=== PATIENT | male | born 1965 | race Caucasian/White ===

== ENCOUNTER 2020-02-10 16:09 | Inpatient (IN) | payer BC, OTHER ==
[~2020-02-10] VITALS: Ht 175.3 cm; Wt 73.0 kg
[2020-02-10 16:10] VITALS: BP 191/101
[2020-02-10 16:36] LABS: ABSOLUTE NEUTROPHILS 7.2 thou/uL (1.4-8.2); BASOPHILS 0.4 % (0.0-2.0); HEMATOCRIT 41.1 % (42.0-52.0); HEMOGLOBIN 14.6 gm/dL (14.0-18.0); LYMPHOCYTES 3.9 % (24.0-44.0); MCH 34.6 pg (26.0-34.0); MCHC 35.4 g/dL (28.0-37.0); MCV 97.7 fL (80.0-100.0); MONOCYTES 10.3 % (1.0-8.0); PLATELET COUNT 241 thou/uL (150-400); POLYS 85.4 % (36.0-66.0); RBC 4.21 mil/uL (4.50-6.00); WBC 8.5 thou/uL (4.0-11.0)
[2020-02-10 16:46] LABS: ANION GAP 21 mmol/L (7-16); BUN 13 mg/dL (7-18); CALCIUM 9.4 mg/dL (8.5-10.1); CHLORIDE 85 mmol/L (98-107); CO2 21 mmol/L (21-32); CREATININE 1.9 mg/dL (0.7-1.3); GLUCOSE 240 mg/dL (74-106); POTASSIUM 3.4 mmol/L (3.5-5.1); SODIUM 127 mmol/L (136-145)
[2020-02-10 16:56] LABS: ALBUMIN 4.2 g/dL (3.4-5.0); LIPASE 460 U/L (73-393); SGOT 64 U/L (15-37); SGPT 89 U/L (30-65); TOTAL BILIRUBIN 1.7 mg/dL (<0.1-1.0); TOTAL PROTEIN 8.8 g/dL (6.4-8.2); TROPONIN-I <0.06 ng/mL (<0.06)
--- NOTE | 2020-02-10 17:15 | NUR ---
SS: [id number] ADDRESS: [address] [place] [address], [facility] [id number] PHONE: [phone] EMPLOYER: [employer] 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
[2020-02-10 17:27] LABS: URINE BLOOD 2+ (Negative); URINE CLARITY SL CLOUDY; URINE GLUCOSE-RANDOM* TRACE (Negative); URINE KETONES 2+ (Negative); URINE LEUKOCYTES-REFLEX NEGATIVE (Negative); URINE NITRITE-REFLEX NEGATIVE (Negative); URINE PROTEIN (DIPSTICK) 1+ (Negative); URINE SPECIFIC GRAVITY >= 1.030 (1.005-1.035)
[2020-02-10 17:28] LABS: ICTOTEST (BILI CONFIRMATORY) Negative (Negative); URINE BILIRUBIN NEGATIVE (Negative); URINE COLOR DARK YELLOW
[2020-02-10 17:47] LABS: AMORPHOUS URATES Few /LPF (None Seen); BACTERIA-REFLEX 1-9 Few /HPF (None Seen); HYALINE CASTS 4-10 Moderate /LPF (None Seen); SQUAMOUS 0-3 Few /LPF (0-3); URINE RBC 3-10 Few /HPF (0-2); URINE WBC-REFLEX 0-5 Rare /HPF (0-5)
[2020-02-10 17:51] LABS: SALICYLATE < 2.8 mg/dL (2.8-20.0)
[2020-02-10 18:03] LABS: AMP/METHAMP Negative (Negative); BARBITURATES Negative (Negative); BENZODIAZEPINES Negative (Negative); COCAINE Negative (Negative); METHADONE Negative (Negative); OPIATES Negative (Negative); PCP Negative (Negative)
[2020-02-10 19:08] VITALS: BP 181/91
[2020-02-10 19:30] VITALS: BP 180/93
--- NOTE | 2020-02-11 00:39 | NUR ---
ADMISSION NOTE: NO HOME MEDICATION, NO PREFERRED PHARMACY. DENIES THAT HE HAS A PRIMARY PHYSICIAN. HE LIVES WITH HIS MOTHER, HE STATES THAT HE OWNS THE HOUSE. HE CANNOT REMEMBER WHERE HIS CELL PHONE IS AT [employer]. HE HAS ASKED REPEATEDILY FOR ME TO LOOK AROUND THE HOSPITAL. HE CANNOT REMEMBER ANY PHONE NUMBERS. I DID PUT HIS MOTHER AND FATHERS PHONE NUMBERS AT HIS BEDSIDE AND SHOWED HIM HOW TO USE THE PHONE. GAVE HIM A LORAZEPAM, PO AT TIME OF ADMISSION FOR AGITATION. HE STATED THAT HE DOES DRINK REGULARLY AND THAT HIS LAST DRINK WAS 4 DAYS AGO. HE SAYS THAT HE DRINKS RUM AND BEER. HIS CLOTHING WERE SOILED WITH FECES. CHANGED HIM OUT OF CLOTHING AND WIPED HIME DOWN AT TIME OF ADMISSION. HE HAS HAD NORMAL BOWEL MOVMENTS AT HOME ACCORDING TO PATIENT, THAT ARE FORMED AND BROWN. HE HAD TOILET TISSUE STUCK INTO HIS RECTUM THAT HAD TO BE REMOVED. HE HAD DRIED FECES ALL OVER HIS BOTTOM AND CLOTHING. NO SKIN BREAKDOWN, NO REDNESS. DENIES PAIN, DENIES HALLUCINATIONS, OR SKIN CRAWLING OR HEARING VOICES. HE DOES ADMIT TO DEPRESSION. HE DOES ADMIT THAT HE HAS A PROBLEM WITH THE AMOUNT OF ALCOHOL THAT HE CONSUMES. HE IS CURRENTLY LAYING IN BED RESTING, WITH TELEVISION ON.
[2020-02-11 01:56] VITALS: BP 155/91
[2020-02-11 07:15] LABS: HEMATOCRIT 30.5 % (42.0-52.0); MCH 34.4 pg (26.0-34.0); MCHC 34.5 g/dL (28.0-37.0); RBC 3.05 mil/uL (4.50-6.00); RDW 13.4 % (10.5-14.5); WBC 5.3 thou/uL (4.0-11.0)
[2020-02-11 07:36] LABS: HEMOGLOBIN 10.5 gm/dL (14.0-18.0)
[2020-02-11 08:00] VITALS: BP 146/76
--- NOTE | 2020-02-11 08:01 | EKG ---
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
--- NOTE | 2020-02-11 08:29 | NUR ---
CALLED DR GIRALDO TO REPORT HGB 10.5 NO NEW ORDERS MAY GIVE HEPARIN. PT HAS MILD ANXIETY GIVEN PO PRN ATIVAN. TOOK AM MEDS IS EATING BREAKFAST SPOKE TO GIRLFRIEND AND IS CALM. VS TAKEN IN CHART. BLOOD SUGAR TAKEN. IV FLUIDS INFUSING ORDERED.
[2020-02-11 08:54] LABS: ALBUMIN 2.9 g/dL (3.4-5.0); CALCIUM 7.6 mg/dL (8.5-10.1); CREATININE 1.3 mg/dL (0.7-1.3); POTASSIUM 3.3 mmol/L (3.5-5.1); TOTAL BILIRUBIN 0.9 mg/dL (<0.1-1.0); TOTAL PROTEIN 6.2 g/dL (6.4-8.2)
[2020-02-11 09:20] VITALS: BP 132/75
[2020-02-11 10:20] VITALS: BP 140/75
--- NOTE | 2020-02-11 10:52 | NUR ---
DR SMALLWOOD CONSULTED AND IS HERE ON UNIT TO SEE PATIENT. DR GIRALDO ON UNIT NOTIFIED OF FALL NO NEW ORDERS OTHER THAN CONSULT FOR DR. SMALLWOOD
--- NOTE | 2020-02-11 10:57 | NUR ---
AT 0920 RN AT NURSES STATION HEARD BED ALARM GOING OFF OPENED DOOR AND OBSERVED PATIENT WOBBLY TRYING TO GET ON BEDSIDE COMMODE. PATIENT SAT ON FLOOR NO INJURIES. CARTON FORMING MACHINE ADJUSTER DOCTOR AND ORAL SURGERY ASSISTANT NOTIFIED. VS TAKEN FALL PROTOCOL ALSO PROTOCOL
--- NOTE | 2020-02-11 13:45 | NUR ---
INITIAL ASSESSMENT: Received consult. MARIO reviewed chart and spoke with nursing and attending physician. Pt was admitted from home due to dehydration/ABDON. Pt is in Enhanced Isolation to r/o COVID-19. Per report, pt was living in a "hoarding" environment. Pt was covered with feces when he was brought in by [facility]. Psych consult ordered to evaluate pt. Pt with hx of ETOH use. MARIO spoke with pt via phone. Introduced role of SW. Pt states he lives at home with his mother, Wong. Prior to admission, pt was not using any DME for ambulation. Pt states he has a PCP, but does not know the PCP's name. 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 MARIO updated UR RN. MARIO attempted to reach pt's mother at phone number that pt provided ([phone]). This number is no longer in service. Awaiting psych consult, COVID-19 and c.diff results. MARIO is following to assist as needed with discharge planning.
[2020-02-11 17:08] VITALS: BP 158/87
--- NOTE | 2020-02-11 17:11 | NUR ---
PATIENT RESTING IN BED IS SLEEPING.EASILY AROUSED BLOOD SUGAR AND V.S TAKEN AT THIS TIME. PT W/O PAIN OR RESP DISTRESS. PATIENT'S BOSS AT [employer] CALLED TO CHECK ON PATIENT. HIS CELL = [phone] AND HOME PHONE IS [phone]. HIS NAME SANDI PATEL HE ALSO STATES PATIENT HAS BLUE CROSS BLUE SHIELD INSURANCE. INFO TO BE PASSED ON TO UNIT TANK WAGON DRIVER TWAN NURSE RN STATES SHE WILL PASS ON THIS NURSE IS GOING TO LEAVE FOR DAY.
[2020-02-11 19:32] VITALS: BP 147/85
[2020-02-12] VITALS (9 sets, daily range): BP systolic 128–193; BP diastolic 55–95
--- NOTE | 2020-02-12 00:40 | NUR ---
ASSUMED CARE OF PT @ MIDNIGHT. REPORT RECIEVED FROM OTHER RN. PT AOX2/3 GETS UP WITHOUT CALLING FALL PREC IN PLACE. CIWA SCORE MONITORED AND ATIVAN GIVEN FOR MANAGEMENT. UP WITH SBA TO BSC AND URINAL BY BEDSIDE. ISOLATION MAITAINED. IV INTACT AND FLUIDS INFUISING. WILL CONT TO MONITOR TILL EOS.
[2020-02-12 08:57] LABS: HEMATOCRIT 32.3 % (42.0-52.0); HEMOGLOBIN 11.1 gm/dL (14.0-18.0); MCH 34.6 pg (26.0-34.0); MCHC 34.5 g/dL (28.0-37.0); MCV 100.1 fL (80.0-100.0); RBC 3.22 mil/uL (4.50-6.00); RDW 13.1 % (10.5-14.5); WBC 4.3 thou/uL (4.0-11.0)
[2020-02-12 09:11] LABS: CALCIUM 7.9 mg/dL (8.5-10.1); CREATININE 0.8 mg/dL (0.7-1.3); POTASSIUM 3.1 mmol/L (3.5-5.1)
--- NOTE | 2020-02-12 12:49 | NUR ---
Received awake on bed. Due medications given as prescribed, able to swallow meds w/o difficulty. On room air. A+Ox2, confused, impulsive at times; pt was restless this morning, wanting to go home and saying he is currently in a hotel room and needs to get something from his other room, re-oriented. On regular diet- tolerating well; no nausea, no vomiting and no abdominal pain noted. On blood sugar monitoring- taken and recorded accordingly. Continent of bowel and bladder- able to use bedside commode and urinal. With NS at 125cc/hr, infusing well at L AC, dressing C/D/I. Falls bundle in place, bed alarm on- pt gets up without calling and have history of falling recently. Maintained on isolation, covid results negative; Cdiff negative but having loose stools. Pt re-oriented frequently. Asked Dr Sawyer if pt needs Covid reswab- to verify with ID nurse Chau or Dr Rosario- Dr Rosario in the steve this PM, update given- asked re: reswab- he called Dr Sawyer re: POC, ok to reswab patient- a/w physician's orders. To continue monitoring patient. Assisted in ADLs.
--- NOTE | 2020-02-12 13:09 | NUR ---
MARIO notified that pt's boss, Андрей Brooke, called yesterday to check on pt. SW spoke with pt via phone. SW asked if Андрей can be contacted to provide him with any update. Pt gave consent for SW to contact Андрей. SW asked pt to state who he lives with. Pt reports that he lives with his mother and provided SW with listed contact number for his mother: [phone]. This number is no longer in service. SW spoke with Андрей via phone. Introduced role of MARIO. Андрей has known pt for about 5 years. Pt's mother prior to pt working for Андрей. Per Андрей, pt was adopted. Pt has 3 step sisters. They have been estranged for years. Андрей states he is unaware of pt having any mental health issues in the past. Андрей reports that he has tried to encourage pt to see a physician on a regular basis. Unsure when pt has last been evaluated by a physician. Pt is normally independent with ADLs and alert/orientated x 4. 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 Their last day of work was December 23. Since that time, Андрей has checked on pt regularly. Андрей states pt does have a hx of daily ETOH use and states that pt states when he is alone at home, he will drink. Pt's job was his source of social interaction. Pt does have health insurance through his employer. The health insurance plan will term at the end of February. Андрей states that he is unsure if pt has applied for unemployment and if he is receiving any income at this time. Pt's friend, Hallie, has called to check on pt. Hallie lives on the [facility]. Андрей states that he is willing to be a designated contact for pt. MARIO discussed needs at time of discharge: possible post-acute placement. Psych is following. Pt remains in Enhanced Isolation. Will need therapy to evaluate pt. No weekend discharge planned. Provided SW contact info to Андрей. SW is following to assist as needed with discharge planning.
--- NOTE | 2020-02-12 21:26 | NUR ---
REVIEWED PT INFORMATION WITH INFECTION CONTROL. OK TO DC ISOLATION. PT TO MOVE TO 2N.
--- NOTE | 2020-02-12 21:41 | NUR ---
PATIENT IS ALERT AND ORIENTED X1-2. COOPERATIVE WITH CARE. UP TO BSC TO VOID WITH SMALL LOOSE STOOL WITH ONE ASSIST. PATIENT RECEIVED COVID NEGATIVE STATUS AND IS TO BE MOVED TO ROOM 203 ON CCU TONIGHT. POTASSIUM 3.1 AND RECEIVED 40MEQ PO AT 1738. WILL HAVE CBC AND BMP DRAWN IN THE AM. PATIENT HAD A CT OF HIS HEAD TODAY. FALL TOOK PLACE ON 02/11/2020, BED ALARM ON. PATIENT IS C-DIFF NEGATIVE PER AM NURSE AND HE HAS HAD APPROX FIVE SMALL STOOLS DURING THE DAY. HISTORY OF ALCOHOL ABUSE. THIS NURSE MEDICATED WITH LORAZEPAM 2MG FOR AGITATION AT CHANGE OF SHIFT. WILL MONITOR.
--- NOTE | 2020-02-12 23:50 | NUR ---
TRANSFER FROM 3W. PT AOX3 NOT TIME. PT LETHARGIC, HAD ATIVAN PRIOR TO TRANSFER. COMPLIANT CALM GOOD EYE CONTACT ANSWERS QUESTIONS, BLUNTED AFFECT. BED ALARM ON. PT DID GET UP WITH OUT CALLING FOR ASSISTANCE TO USE URINAL. IVF INTACT.
[2020-02-13] VITALS (9 sets, daily range): BP systolic 130–188; BP diastolic 73–100
[2020-02-13 04:45] LABS: HEMATOCRIT 33.2 % (42.0-52.0); HEMOGLOBIN 11.2 gm/dL (14.0-18.0); MCH 34.2 pg (26.0-34.0); MCHC 33.7 g/dL (28.0-37.0); MCV 101.4 fL (80.0-100.0); RBC 3.27 mil/uL (4.50-6.00); WBC 3.6 thou/uL (4.0-11.0)
[2020-02-13 04:55] LABS: CREATININE 0.8 mg/dL (0.7-1.3); POTASSIUM 3.2 mmol/L (3.5-5.1)
--- NOTE | 2020-02-13 05:06 | NUR ---
RESTLESS IN AM CRAWLING IN AND OUT OF BED, SLIGHT TREMORS, ELVEATED BP DIAPHORESIS. LINENS CHANGED. PRN IV ATIVAN PER ANDREINA 9.
--- NOTE | 2020-02-13 06:19 | NUR ---
BP REMAINS 180/100 MANUAL AFTER ATIVAN FOR CIWA. PT SITTING IN BED WATCHING TV EATING POTATOE CHIPS. PROVIDER CALLED. IV FLUIDS DCD ONE TIME HYDRALAZINE ORDERED.
--- NOTE | 2020-02-13 16:27 | NUR ---
PT CARE ASSUMED AT 0700. ASSESSMENTS CHARTED. MEDICATIONS CHARTED. PT CIWA AT 8. PT OFTEN SITS CROSSLEGGED AT THE HEAD OF THE BED. BED ALARM ON. PT IS UNSTEADY ON HIS FEET, ABLE TO WALK TO TOILET FOR BM WITH SBA. UTILIZES URINAL. CONFUSED / DISORIENTED, WANTS TO PHONE HIS PARENTS ().
[2020-02-14 03:37] VITALS: BP 171/89
[2020-02-14 07:18] VITALS: BP 162/88
--- NOTE | 2020-02-14 17:39 | NUR ---
Assumed patient care at 0715. Vital signs have been stable. Lung sounds clear to auscultation; diminished. Patient had a normal bowel movement today. He has been consuming 100% of all meals. Patient has been anxious, paranoid and agitated during this shift. He has also been impulsive and inappropriate. Patient has gotten angry because he cant have any alcohol here; he has tried to bargain with this nurse, stating "I will take this medication after you give me a beer." He has been in and out of the restroom several times and was noted to appear to be masturbating in there, as he asked to HOUSEHOLD ASSISTANT to "stay the night with him tonight", asked her "out" several times and was focused on her for most of this afternoon. Patient has been trying to go into other patient's rooms and has threatened to leave several times. Security came to assist/persuade patient to take his medication x's 1. Patient finally took Lorazepam 1mg po at 1525 after much persuation. This medication was not noted to decrease patient's agitation and/or anxiety. Dr Sawyer notified. Received new order for Haloperidol 2.5mL per IV push. Haldol given at 1620 with effectiveness noted after approximately 15 minutes. Will continue to monitor and report to on-coming shift.
[2020-02-14 20:50] VITALS: BP 161/95
--- NOTE | 2020-02-15 05:37 | NUR ---
Assumed pt care at 1900. Pt is A/OX to self and place only, questioning when he'll be discharged home pt explained to pt the POC and pt verbalized understanding. Pt's impulsive and gets up frequently w/o calling for help;fall safety reinforced. Pt incontinent/continent of urine this shift. Up to BR with SBA/gait unsteady and weak. Denies pain on assessment. CIWA score 1. Denies anxiety/paranoia. No requests for alcohol made this shift. Fall precautions in place, will continue to monitor pt.
[2020-02-15 07:15] VITALS: BP 179/97
--- NOTE | 2020-02-15 15:32 | NUR ---
ASSUMED CARE AT 0700. PT ALERT, CONFUSED WITH POOR MEMORY. VSSA/RA. NO COMPLAINTS AT THIS TIME. PT IMPULSIVE AND WON'T STAY IN BED AND CALL FOR HELP. REINFORCED AND EDUCATED PT THE IMPORTANCE OF SAFETY AND TO USE THE CALL LIGHT. BED ALARM ON, CALL LIGHT IN REACH. PT CALLED RN TO LOOK AT HIS PIV, APPEARS RED AND SWOLLEN AT INSERTION SITE. NOTHING INFUSING. UNSURE WHEN HAPPENED. LOOKS LIKE IT WAS POSSIBLY BEING PICKED AT BY PT. TOOK PIV OUT WITHOUT ANY COMPLICATIONS. TOLERATING DIET. WILL CONTINUE TO MONITOR
[2020-02-15 15:40] VITALS: BP 149/82
--- NOTE | 2020-02-15 17:27 | NUR ---
SW received call from pt's boss, Андрей Brooke. SW returned call and left voice message with SW contact info. Pt moved to 4W from 3W over the weekend. SW is following to assist as needed with discharge planning.
[2020-02-15 19:20] VITALS: BP 148/87
[2020-02-15 19:36] LABS: TSH 2.954 uIU/mL (0.358-3.740)
--- NOTE | 2020-02-16 05:10 | NUR ---
Assumed pt care at 1900. A/Ox2,confused, impulsive and paranoid at times. Pt needs frequent reminders not to turn off the bed alarm off and call for help before getting OOB but non-compliant. Medicated per EMAR with some relief. Denies pain on assessment. Up with cane/SBA. PIV reinserted on RFA w/2 attempts. Pt supposed to have MRI today,questionare filled with pt and faxed. Fall safety reinforced, bed alarm on and call light within reach. Resting with no distress noted. Will continue to monitor pt.
[2020-02-16 08:01] VITALS: BP 147/88
[2020-02-16 14:21] LABS: ALBUMIN 3.4 g/dL (3.4-5.0); DIRECT BILIRUBIN < 0.1 mg/dL (<0.1-0.2); SGOT 40 U/L (15-37); SGPT 63 U/L (30-65); TOTAL BILIRUBIN 0.6 mg/dL (<0.1-1.0); TOTAL PROTEIN 6.9 g/dL (6.4-8.2)
--- NOTE | 2020-02-16 16:23 | NUR ---
CM ATTEMPTED PT TO PT IN HIS ROOM TO DISCUSS POSSIBLE POST ACUTE CARE STAY WITH NO ANSWER. CM TO CONTINUE TO REATTEMPT. CM TO FOLLOW INDICATED WITH DC PLANNING.
[2020-02-16 16:26] VITALS: BP 173/91
--- NOTE | 2020-02-16 20:35 | NUR ---
Assumed patient care at 0715. Vital signs stable, LSCTA (diminished); BS x's 4, abdomen soft and non-tender, skin is clean, warm, dry and intact. Patient denies pain. Affect is flat. He continues with paranoid statements, is alert and oriented x's 1-2. Patient has been re-directed from attempting to go into other patients rooms and has attempted to leave via the elevator. Report given to on-coming nurse.
[2020-02-16 20:43] VITALS: BP 154/82
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
[2020-02-17 05:26] LABS: HEMATOCRIT 31.3 % (42.0-52.0); HEMOGLOBIN 10.8 gm/dL (14.0-18.0); MCH 34.8 pg (26.0-34.0); MCHC 34.5 g/dL (28.0-37.0); MCV 100.9 fL (80.0-100.0); RBC 3.1 mil/uL (4.50-6.00); RDW 13.6 % (10.5-14.5); WBC 3.4 thou/uL (4.0-11.0)
[2020-02-17 05:29] LABS: CALCIUM 9.1 mg/dL (8.5-10.1); CREATININE 1.1 mg/dL (0.7-1.3); POTASSIUM 3.2 mmol/L (3.5-5.1)
[2020-02-17 08:24] VITALS: BP 146/89
--- NOTE | 2020-02-17 13:50 | NUR ---
Assess due to length of stay. Admit with alcoholic encephalopathy, acute renal failure. Pt confused, impulsive, flight risk. Followed by psych. Also has pending workup for ? liver mass. Unsure of wt hx. Eating 100% of all meals and on vitamin, thiamine and B12 supplementation. CM working on post acute care placement. Low nutrition risk with appropriate nutrition interventions in place.
[2020-02-17 14:08] LABS: GLOBULIN TOTAL 3.3 g/dL (2.2-3.9); M-SPIKE Not Observed g/dL (Not Observed)
[2020-02-17 14:41] VITALS: BP 138/84
--- NOTE | 2020-02-17 15:09 | NUR ---
CARE TEAM INDICATING THATPT NEED SKILLED POST ACUTE CARE STAY UPON DC. CM CALLED AND SPOKE WITH PT HE EXPRESSED UNDERSTANDING. CM INDICATED THAT CM WOULD PROVIDE LIST OF IN NETWORK FACILITIES FOR HIM TO REVIEW. LIST WAS PROVIDED. CM CALLED AND LEFT VM FOR PT'S FRIEND IN [place] AND FOR PT'S BOSS SANDI. CM ASKED THAT FACESHEET BE SENT TO [facility] FOR ASSISTANCE WITH POSSIBLE MEDICAID/DISABILITY APPLICAITON. CM ASKED PT ABOUT DPOA EXPLAINED WHAT IT WAS AND ASKED WHO HE WOULD WANT IF HER WERE TO DO ONE HE INDICATED LIKELY MARY. CM TO SEND REFERRALS FACILITIES CLOSEST TO PT'S [id number] ZIP CODE FOR REVIEW FOR POSSIBLE ADMISSION.
--- NOTE | 2020-02-17 15:11 | NUR ---
FAXED FACE SHEET TO CHRISTINA AT [facility] TO HELP WITH MEDICAID APPLICATION FOR SECONDARY INSURANCE RECEIVED CONFIRMATION.
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
[2020-02-17 19:15] VITALS: BP 127/66
--- NOTE | 2020-02-18 05:07 | NUR ---
Pt. rested quietly during the night when checked on during frequent rounds. He c/o back pain and was given po pain pill (see emar) with some relief noted. Bed alarm is on.
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
[2020-02-18 08:05] VITALS: BP 166/86
[2020-02-18 12:34] LABS: CHOLESTEROL 174 mg/dL (<200); HDL CHOLESTEROL 69 mg/dL (>40); LDL CHOLESTEROL 88 mg/dL (<100); TC:HDL 2.5 Ratio (Not establshd); TRIGLYCERIDE 87 mg/dL (<150); VLDL 17 mg/dL (<40)
--- NOTE | 2020-02-18 13:55 | NUR ---
FAXED REFERRAL TO [facility] SHE RECEIVED REFERRAL AND CAN ACCEPT CLINICALLY PT PREFERS [facility] FIRST CHOICE. FAXED REFERRAL TO [facility] RECEIVED CONFIRMATION AND LEFT MSG WITH DEANNA IN ADM AT [facility]. DP TO FOLLOW.
[2020-02-18] MEDS ORDERED: RISPERDAL 1 MG T1 MG PO ×2 (14:25)
[2020-02-18] MEDS ORDERED: PRENATAL PO (14:26)
[2020-02-18] MEDS ORDERED: VITAMIN B-1100 M2 PO (14:26)
[2020-02-18 15:45] VITALS: BP 155/88
--- NOTE | 2020-02-18 16:28 | NUR ---
CARE TEAM INDICATED THAT PT IS APPROPRIATE FOR ADMISSION TO 5S [facility]. PT'S SISTER JOSÉ MANUEL MOSS CALLED THIS AM ASKING ABOUT DISCHARGE PLANNING INFO. CM SPOKE WITH PT AND HE INDICATED THAT IT WAS OK FOR CM TO SHARE SUCH INFO WITH HER. CM ATTEMPTED PC TO HER THIS AFTERNOON ONCE PLAN BECAME CLEAR AND LEFT VM WITH CONTACT TO RETURN CALL. PLAN IS FOR PT TO GO TO [address] [place] [address] THIS DAY. HILARIA HAD SENT REFERRAL TO [facility] [place] IT'S CLOSE PT P'S HOME AND HE WAS AGREEABLE WIH POSSIBLE POST ACUTE CARE STAY UPON DC. CM SPOKE WITH LIAISON SANCHEZ AND SHE INDICATED THAT THEY ARE ABLE TO ACCEPT PT FOR SHORT TERM SKILLED REHAB AND POSSIBLE LTC IF NEEDED. CM HAD SENT FACE SHEET TO [facility] FOR THEM TO ASSIST WITH POSSIBLE SECONDARY MEDICAID AND DISABILITY. CM TO ATTEMPT PT NOIFY MARY AND SANDI OF MA'S DC TO [facility]. NO OTHER CM INTERVENTION INDICATED. CASE CLOSED.
--- NOTE | 2020-02-18 17:40 | NUR ---
Assumed pt care this am pt is very confused and is a flight risks, high flight risk and aggression was noted earlier this am, 1:1 sitter placed as per Dr. Honeycutt. Medications and diet are well tolerated, pt was tgiven a complete bath. Very impulsive and highly conlfused. POC followed, pt is dc to 5n will be going at 6 pm tonight.
== END 2020-02-18 18:30 | DRG 57 ==
LOC: ER 16:09 → EROBS 17:41 → 3W 17:41 → 2N 02-12 22:57 → 4W 02-13 20:25
PROVIDERS: Emergency Medicine; Psychiatry & Neurology Neurology; ADMIT Hospitalist
DX: G31.2 Degeneration of nervous system due to alcohol (principal); N17.9 Acute kidney failure, unspecified; F10.231 Alcohol dependence with withdrawal delirium; F10.27 Alcohol dependence with alcohol-induced persisting dementia; I10 Essential (primary) hypertension; R00.0 Tachycardia, unspecified; Z60.2 Problems related to living alone; Z20.828 Contact with and (suspected) exposure to other viral communicable diseases; Z88.0 Allergy status to penicillin; Z79.899 Other long term (current) drug therapy
CPT/HCPCS: 10040; 10045; 10081; 10879

== ENCOUNTER 2020-02-18 18:55 | Inpatient (IN) | payer BC, OTHER ==
[~2020-02-18] VITALS: Ht 172.7 cm; Wt 76.0 kg
[~2020-02-18 18:55] MED LIST: PRENATAL PO; RISPERDAL 1 MG T1 MG PO; VITAMIN B-1100 M2 PO
--- NOTE | 2020-02-18 23:07 | NUR ---
PATIENT ADMITTED TO THE UNIT THIS DATE AFTER SPENDING A WEEK ON MEDICAL FLOOR R/T DEHYDRATION AND ABDON. GENERALLY COOPERATIVE WITH ADMISSION. DOES DODGE A FEW QUESTIONS, SPECIFICALLY ABOUT AI AND SUBSTANCE USE. PRESENTS GOAL DIRECTED AND LOGICAL, BUT LATER ASKS ABOUT A LITTLE BOY HE WAS FOLLOWING, APPARENTLY ATTENDING TO . CONTINUES TO PERSEVERATE ON CALLING HIS PARENTS WHO, PER REPORT HAVE . DELUSIONAL THOUGHT CONTENT SURROUNDING PARENTS. BS ACTIVE X 4, HEART SOUNDS REGUALR, LS CTA. DENIES ANY PAIN AT THIS TIME. DENIES SENSORY PERCEPTION PROBLEMS, BUT THEN STATES HE USES A CANE AT HOME BECAUSE HIS DOCTOR TOLD HIM HE HAS A DISORDER IN WHICH HIS LEGS GO NUMB SUDDENLY. DENIES ANY FALLS IN THE PAST 6 MONTHS. UPON REVIEWING NOTES, PATIENT HAD TOLD DOCTOR ON MEDICAL FLOOR THAT HE FELL A FEW WEEKS AGO. PATIENT IS A POOR HISTORIAN AND THE DELUSIONAL CONTENT MAKE IT DIFFICULT TO ASSESS FALL OR SUICIDE RISK.
[2020-02-19 07:00] VITALS: BP 119/87
--- NOTE | 2020-02-19 10:30 | NUR ---
Assumed care 0700. Pleasant, compliant with meds. Observant of milieu.
--- NOTE | 2020-02-19 15:26 | NUR ---
JOSE reviewed the CM notes from his 4th floor stay since february 11 at [facility]. Pt has a medicaid application started with [employer], and has been clinincally accepteed at [facility] and maybe [facility] [place]. JOSE completed his intake assessment and TP. Jose then called and left a VM with Mariam at [facility] to confirm this d/c plan.
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
[2020-02-19 19:54] VITALS: BP 150/93
--- NOTE | 2020-02-19 22:01 | NUR ---
Care of patient assumed at 1915. Patient is sitting in the day room talking with peers. Pleasant and cooperative upon approach. Oriented to self only. Knows the year, but not day or date. Can't recall why he was admitted to the hospital. Denies SI/HI. Believes he has known this nurse for years. Becomes suspicious when this nurse attempts to administer meds. Med compliant after much encouragement. Comes to nurses station to report that he thinks a peer is suffering from nicotine withdrawal. Patient is thanked for his concern, and reminded that everyone has their own issues that they need to concentrate on and that he should take care of himself before worrying about others.
[2020-02-20 05:38] LABS: ABSOLUTE NEUTROPHILS 4.4 thou/uL (1.4-8.2); BASOPHILS 0.7 % (0.0-2.0); EOSINOPHILS 0.7 % (0.0-3.0); HEMATOCRIT 30.7 % (42.0-52.0); HEMOGLOBIN 10.6 gm/dL (14.0-18.0); MCH 34.4 pg (26.0-34.0); MCHC 34.6 g/dL (28.0-37.0); MCV 99.3 fL (80.0-100.0); MONOCYTES 7.7 % (1.0-8.0); PLATELET COUNT 304 thou/uL (150-400); POLYS 80.9 % (36.0-66.0); RBC 3.09 mil/uL (4.50-6.00); RDW 13.9 % (10.5-14.5); WBC 5.4 thou/uL (4.0-11.0)
[2020-02-20 05:52] LABS: ALBUMIN 3.5 g/dL (3.4-5.0); CALCIUM 8.9 mg/dL (8.5-10.1); CREATININE 0.9 mg/dL (0.7-1.3); POTASSIUM 3.6 mmol/L (3.5-5.1); TOTAL BILIRUBIN 0.7 mg/dL (<0.1-1.0); TOTAL PROTEIN 7.6 g/dL (6.4-8.2)
[2020-02-20 09:28] VITALS: BP 120/80
[2020-02-20 09:31] VITALS: BP 120/80
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
[2020-02-20 19:17] VITALS: BP 151/79
[2020-02-20 23:31] VITALS: BP 151/79
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
[2020-02-21 07:55] VITALS: BP 163/86
--- NOTE | 2020-02-21 11:36 | NUR ---
PATIENT WAS IN BED WHEN CARE ASSUMED. WHEN AWOKEN, AMBULATED TO THE DAYROOM FOR BREAKFAST, COMSUMED 100%. PATIENT TOOK ALL MORNING MEDICATIONS WHOLE WITHOUT DIFFICULTY. PATIENT IS ALERT, FORGETFUL, PERIODS OF CONFUSION. PATIENT IS CALM, COOPERATIVE WITH CARE AT THIS TIME. PATIENT DENIES SUICIDAL/HOMICIDAL IDEATION. AFFECT IS FLAT, MOOD IS BLUNTED. PATIENT STATES HE HAD BOWEL MOVEMENT THIS MORNING. PATIENT DENIES HAVING PHYSICAL PAIN. PATIENT'S GOAL TODAY IS TO SIT AND WATCH MOVIES, CONCERN WAS THAT HE IS NOT ABLE TO FIND HIS MOTHER AND HIS PARTNER. HE IS CURRENTLY SITTING IN DAY ROOM WATCHING TV. NO AGGRESSION OR AGITATION NOTED AT THIS TIME, WILL MONITOR FOR SAFETY.
--- NOTE | 2020-02-21 14:25 | NUR ---
MARIO faxed update to [facility].
--- NOTE | 2020-02-21 16:35 | NUR ---
SW completed 1:1 with patient in lieu of group due to COVID-19 restrictions. Patient was engaged and displayed confusion during our interaction.
[2020-02-21 19:55] VITALS: BP 141/81
[2020-02-22 08:42] LABS: ABSOLUTE NEUTROPHILS 3.9 thou/uL (1.4-8.2); BASOPHILS 0.8 % (0.0-2.0); EOSINOPHILS 0.7 % (0.0-3.0); HEMATOCRIT 29.8 % (42.0-52.0); HEMOGLOBIN 10.4 gm/dL (14.0-18.0); LYMPHOCYTES 12.4 % (24.0-44.0); MCH 34.9 pg (26.0-34.0); MCV 99.8 fL (80.0-100.0); MONOCYTES 7.4 % (1.0-8.0); PLATELET COUNT 300 thou/uL (150-400); POLYS 78.7 % (36.0-66.0); RBC 2.99 mil/uL (4.50-6.00); RDW 13.8 % (10.5-14.5); WBC 4.9 thou/uL (4.0-11.0)
[2020-02-22 09:07] LABS: CALCIUM 8.8 mg/dL (8.5-10.1); CREATININE 0.9 mg/dL (0.7-1.3); MAGNESIUM 1.7 mg/dL (1.8-2.4); PHOSPHORUS 3.7 mg/dL (2.5-4.9); POTASSIUM 3.4 mmol/L (3.5-5.1)
--- NOTE | 2020-02-22 09:22 | NUR ---
PT FINISHED EATING. PT LIKE TO FOLLOW STAFF AND CHECK ON OTHER PATIENTS. PT IS VERY TOUCHY WITH OTHER PATIENTS. PT TOOK MEDS WITHOUT ANY ISSUES.
[2020-02-22 09:25] VITALS: BP 123/74
--- NOTE | 2020-02-22 11:10 | NUR ---
Sw spoke with pt's sister and she was surptised that pt was going home, as he lives in a hoarding situation. Her conversations included his delusional thoughts. She also reports that this pt's boss has his car, car keys and the keys to his apartment- and he won't return her phone calls. He tells her that people are stealing his things and poisoning him. She believes he wouldnt be safe at home due to lack of nutrition and ETOH abuse- and that he may not have a job.
--- NOTE | 2020-02-22 15:00 | EKG ---
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 Inserter: CONSTANTINE : 1965 Requested By: Carmencita Underwood Order Number: [id number] MD: Po Garner Measurements Intervals Lester Rate: 93 P: 43 VA: 172 QRS: -31 QRSD: 83 T: 20 QT: 348 QTc: 433 Interpretive Statements Sinus rhythm Probable left atrial enlargement Inferior infarct, old Borderline ST elevation, anterior leads Lateral leads are also involved Compared to ECG 02/10/2020 16:13:21 Electronically Signed On 02-22-2020 14:58:11 CDT by Po Garner [email or web address] <ELECTRONICALLY SIGNED> By: Po Garner MD 02/22/20 1458 1044 1044 Po Garner MD /EPI
--- NOTE | 2020-02-22 15:09 | NUR ---
MARIO called and spoke with Андрей Lou [phone], and provided an updated. MARIO also reported with Dr Honeycutt who reported that this pt was not ready to d/c yet. It is undecided whether he can go skilled or home with support. Андрей is going to be sure this pt still has health insurance for this duration through [employer] Андрей emailed a copy of this insurance
--- NOTE | 2020-02-22 16:27 | NUR ---
PT WANTING TO USE THE PHONE. PT STATED HE WANTED TO TALK TO HIS MOM, CALLED HIS FATHER NUMBER. PT STATED HE IS REALLY SICK AND IF HE ANSWERS HE WON'T UNDERSTAND.
[2020-02-22 19:37] VITALS: BP 145/95
--- NOTE | 2020-02-23 02:20 | NUR ---
ASSUMED CARE ON 02/22/20 @ 19:15, IN THE MILEU. INTRUSIVE INTO PEERS PERSONAL SPACE AND BUSINESS, CAUTIONED TO ATTEND TO HIS OWN HEALTH AND WELL BEING. CONFUSES OTHER PATIENTS WITH HIS MOTHER AND ELDERLY FATHER. ACKNOWLEDGES ANXIETY/WORRY ABOUT HIS FAMILY. DENIES THAT HIS MOM HAS . DENIES DEPRESSION. REGARDING SI, SAYS NO, I DONT HAVE TO THINK ABOUT HURTING MYSELF I JUST GET HURT, IT JUST HAPPENS. ONCE IN A BLUE FRANCIS. ABOUT HI, STATES THAT IF SOMEONE MAKES HIM MAD, THEY WOULD DESERVE WHAT THEY GET. PATIENT IS HAVING TROUBLE SLEEPING, tYLENOL GIVEN @ 20:45. PATIENT TOOK MEDICATIONS ONE AT A TIME, REQUESTED THE NAME OF EACH MED, SEVERAL TIMES, SHOWN THE NAME ON THE PACKAGE SEVERAL TIMES, AND HOLDING EACH MED IN HIS HAND FOR SEVERAL MINUTES AND TALKING ABOUT EACH MEDICATION INDICATING SOME PARANOIA REGARDING THE MEDICATIONS IN A LONG DISCUSSION ABOUT EACH MEDICATION. LAID DOWN @ ABOUT 0100, HOWEVER GOT UP @ 02:30 AND AMBULATING THROUGHOUT THE MILEU AT THIS WRITING.
--- NOTE | 2020-02-23 07:35 | NUR ---
ASUMMED CARE OF PATIENT HE IS UP AMBULATING THE UNIT. NO PAIN OR INCREASED ANXIETY.
[2020-02-23 07:53] VITALS: BP 133/93
[2020-02-23 07:54] VITALS: BP 131/92
--- NOTE | 2020-02-23 09:08 | NUR ---
PATIENT IN DINING ROOM.TOOK AM MEDS. INCLUDING CYANOCOBALAMIN IM. PT STATES NO PAIN AND NO RESP DISTRESS NOTED. PT LIKES TO TALK. NO INCREASED ANXIETY.
[2020-02-23 18:39] VITALS: BP 108/63
[2020-02-23 19:45] VITALS: BP 143/88
--- NOTE | 2020-02-23 20:42 | NUR ---
Assumed care of patient at change of shift. Patient was sitting in day room at a table with 2 of his peers. He was watching TV and interacting pleasantly with peers. Assessment completed. Pt. was alert and could answer name, and place but named year at 1917 and could not answer questions correctly regarding his situation or discharge planning. Pt. affect was blunted but he interacted with staff pleasantly. At approximately 2030 pt. started ambulating in hallway with 2 other peers. He is trying to direct the others on wear to go and what to do. Patient's were made to go to TV and they complied. NO incidences noted at this time.
[2020-02-24 01:26] VITALS: BP 143/88
--- NOTE | 2020-02-24 02:30 | NUR ---
No further incidence noted from patient. He is currently resting quietly in bed with eyes closed. Respirations are even and non-labored. No signs or symptoms of distress noted.
[2020-02-24 09:43] VITALS: BP 126/75
--- NOTE | 2020-02-24 11:45 | NUR ---
Assumed care 0700.Signed in as a Voluntary pt. DeniesSI/HI/AH/VH.Denies physical complaints.Has no issues or goals forthe day. Has talked onthe phone couple oftimes.
--- NOTE | 2020-02-24 12:16 | NUR ---
SW met with pt's court appt gang ripsaw operator but pt was willing to voluntarily sign himslef inpt before a 21 day hold was initiated. Nursing completed this and provided pt with a copy and one left on the chart.
--- NOTE | 2020-02-24 12:23 | NUR ---
SW called and left a VM with [facility] case management and outpt asking for verification of services.
--- NOTE | 2020-02-24 13:01 | NUR ---
Sw received a call from [facility] and they stated that this pt has not received services from them in [facility]
--- NOTE | 2020-02-24 15:15 | NUR ---
Jose called Shannon Cortez at [facility] outpt [phone] and left a VM requesting assistance with d/c plan.
--- NOTE | 2020-02-24 18:00 | NUR ---
After lunch stated one of his feet had been broken in the past and it was bothering him to the extent he had trouble walking and temporarily used a walker. After dinner he was walking just fine. He is paranoid, delusional thinking he is going home today. He repeatedly keeps asking for his belongings and refers to his mother as if she is still living. 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 He has trouble finding his room and needs to be led to it several times per shift.
[2020-02-24 20:02] VITALS: BP 162/87
[2020-02-24 22:15] VITALS: BP 162/87
--- NOTE | 2020-02-25 00:15 | NUR ---
Assumed care of patient this pm shift. Patient appears delusional and states that he is going to the fire department to change his clothes. Patient is overall calm. Patient is cooperative with medications. Patient takes medications whole. Patient is ambulatory. Patients assessment shows clear breath sounds, active bowel sounds, and s1 s2 heard with auscultation. We will continue to monitor per hospital protocols.
[2020-02-25 07:58] VITALS: BP 123/82
[2020-02-25 11:12] VITALS: BP 153/80
[2020-02-25 11:15] VITALS: BP 158/87
[2020-02-25 11:18] VITALS: BP 159/85
--- NOTE | 2020-02-25 11:19 | NUR ---
Up ambulating in unit without s/o distress. Conversing with peers and staff, looking out for peers. Occassionally sarcastic. Appears calm and restless at times. States his anxiety level is a 6-7 during AM assessment. Denies SI/HI. Alert to person and place but consistently in September for time. Breath sounds clear. Reg HR auscultated. HR this AM 113. Orthostatic BP/HR done midmorning, HR 97-100. Hypertensive 150s/80s. EKG done. Color pink with brisk capillary refill and palpable peripheral pulses. Edema +1 in R ankle, +2 pitting in L ankle. Independent with voiding. Active bowel sounds over soft, rounded abdomen. States he had BM yesterday.
--- NOTE | 2020-02-25 12:24 | NUR ---
RT Progress Note- Patient presents in the milieu most of the day and inserts himself in to social situations with peers. He exhibits poor social boundaries; pushing patient wheelchairs, putting his arm around patients, etc. He is easily redirected and accepts reorientation but then quickly forgets what he was told. Patient has been present for music and exercise groups.
--- NOTE | 2020-02-25 12:37 | NUR ---
I noticed that Flash had a buldge in both of his socks in the ankle area. I questioned as to what he had in his socks. He stated "I am looking for my billfold." I asked if he would show me what he had in his socks. He stated "medicine." He did pull out the following items: salt and sugar packets, a cup that has been torn and had sugar packets, a bottle of shaving cream, hand lotion and a empty medicine cup. Flash did let me have the shaving.
--- NOTE | 2020-02-25 13:52 | NUR ---
MARIO met with Dr Honeycutt and it is expected that pt will be seen by Dr Snyder neuropsych this weekend. This would help with d/c planning. pt might need SNF but might be unwilling to particapte. Pt might be able to return safely based on the testing outcomes.
[2020-02-25 20:09] VITALS: BP 147/84
--- NOTE | 2020-02-26 01:35 | NUR ---
Care assumed of patient at 1915: Patient seated in dayroom at start of shift. Patient alert and oriented to person only. Patient has suspicious, perplexed appearance to him. Difficulty making eye contact with nurse. Restless at times. Moving from couch, to chair to room several times. Patient denied pain or discomfort. Patient forgetful and confused. Patient appeared anxious and paranoid. Assessment completed. Patient became more paranoid, asking nurse to stop speaking with him "because the others will hear you". Attempted to re-orient patient and educate patient that nurse was only listening to heart and lung sounds. Patient became irritable and said "stop talking!". Patient then started to have some disorganized speech. Explained, again, to patient where he was and who the nursing staff was. Patient shown name jone. Patient stated "I see your letters, that is what they want you to believe" while waving his arms around. Patient ate 100% HS snack. Patient refused Mag Ox HS dose. Patient demanding doctors paperwork and med list. After education by nurse, patient took other HS medication. Patient restless at times. Patient provided PRN Trazodone for sleep. Patient took without difficulty. Patient was assisted to the bathroom with supervision x1. Patient disoriented on room and bathroom location. Patient had difficulty falling asleep and was found pushing multiple buttons on his bed. Once patient was able to fall asleep, he has been able to rest quietly.
[2020-02-26 07:15] VITALS: BP 131/78
--- NOTE | 2020-02-26 07:37 | NUR ---
Nutrition: Assessing for early weekend LOS. Admit: major neurocognitive disorder. EMR reviewed. Pt noted to be A&O to person only. Irritable, paranoid at times, confused/forgetful. Not seen for interview given behaviors and lack of orientation. Eating extremely well. Eating 100% of almost all meals; 95% meal average per last 16 recorded meals since 02/19. At a healthy wt, 160# with BMI 24.3 kg/m2. Stable wt this month: 161# on 02/09, 160# on 02/22. Per latest note, pt to be seen by neuropsych this weekend. No nutrition intervention needs identified at this time. Keep as low nutrition risk.
--- NOTE | 2020-02-26 08:24 | NUR ---
PT DENIES ANY PAIN AT THIS TIME. PT UP AD ALIVIA. PT TOOK MEDS WITHOUT ANY ISSUES. PT STATED HE IS READY TO GO HOME ANYTIME. PT IS CARRING AROUND A BAG WITH BELONGINGS IN IT.
[2020-02-26 08:30] VITALS: BP 131/78
--- NOTE | 2020-02-26 08:47 | EKG ---
[facility] [place] [address] ELECTROCARDIOGRAM REPORT Name: RON MOSS Room #: 52-A ADM IN M.R.#: [id number] Admission: 02/18/20 Attend Phys: Tere Honeycutt MD Discharge: Date of : 61 Report #: [id number] THIS REPORT FOR: cc: COREY - No family physician/PCP FAM - No family physician/PCP Kyrie Rosa MD [facility] THIS REPORT FOR: //name// [facility] Test Date: 2020-02-25 Test Time: 11:10:33 Pat Name: RON MOSS Department: Room: [facility] A Gender: M Anesthesia Tech: Salina BRADLEY : 1965 Requested By: Bladimir Parson Order Number: [id number] MD: Kyrie Rosa Measurements Intervals Sheldon Rate: 91 P: 45 HI: 172 QRS: -27 QRSD: 83 T: 22 QT: 346 QTc: 426 Interpretive Statements Sinus rhythm Minimal diffuse ST elevation, consider early repolarization Inferior infarct, age indeterminate Compared to ECG 02/22/2020 10:44:46 No significant change was found Electronically Signed On 02-26-2020 8:45:22 CDT by Kyrie Rosa [email or web address] <ELECTRONICALLY SIGNED> By: Kyrie Rosa MD, [facility] 02/26/20 0845 1110 1110 Kyrie Rosa MD, [facility] /EPI
[2020-02-26 09:03] LABS: ABSOLUTE NEUTROPHILS 2.7 thou/uL (1.4-8.2); BASOPHILS 0.8 % (0.0-2.0); EOSINOPHILS 1.6 % (0.0-3.0); HEMATOCRIT 29.7 % (42.0-52.0); HEMOGLOBIN 10.3 gm/dL (14.0-18.0); LYMPHOCYTES 22.6 % (24.0-44.0); MCH 34.8 pg (26.0-34.0); MCHC 34.8 g/dL (28.0-37.0); MONOCYTES 8.2 % (1.0-8.0); PLATELET COUNT 315 thou/uL (150-400); POLYS 66.8 % (36.0-66.0); RBC 2.97 mil/uL (4.50-6.00); RDW 13.9 % (10.5-14.5); WBC 4.1 thou/uL (4.0-11.0)
[2020-02-26 09:19] LABS: ALBUMIN 3.1 g/dL (3.4-5.0); CALCIUM 8.4 mg/dL (8.5-10.1); CREATININE 0.8 mg/dL (0.7-1.3); POTASSIUM 3.5 mmol/L (3.5-5.1); TOTAL BILIRUBIN 0.6 mg/dL (<0.1-1.0); TOTAL PROTEIN 7.1 g/dL (6.4-8.2)
--- NOTE | 2020-02-26 16:20 | NUR ---
MARIO recieved VM from Андрей Lou, concerning insurance for Pt. Mr. Lou stated in the VM the Pt's insurance will end on 03/06/2020. MARIO attempted to call Mr. Lou back concerning the matter. MARIO left a VM for MR. Lou
--- NOTE | 2020-02-26 17:36 | NUR ---
PT TOLERATING MEDICATION, NO SIDE EFFECTS. PT DENIES ANY PAIN. PT DID TALK ABOUT SEEING [employer] AND HE LIKES TO GO TO GAMES. PT GAIT STEADY.
[2020-02-26 19:32] VITALS: BP 140/87
--- NOTE | 2020-02-27 00:45 | NUR ---
Care assumed of patient at 1915: Patient seated in dayroom at start of shift. Alert and oriented to person and place only. Believes that it is September and he is at the hospital due to "stomach issues". Denies pain or discomfort. Patient helpful to other peers. Interactive with peers and staff. Denies SI/HI/AH/VH. No delusional or paranoia behaviors observed. Patient able to have appropriate conversation with nurse, smiling. Calm, pleasant and cooperative. Respectful and appreciative. Was inquisitive about HS medication and asked multiple questions. Requested to take HS medication 30 minutes apart. Asked patient to take all medications in one sitting which he complied with. Patient has been carrying around belongings in a brown paper bag and has been protective of it when other peers try to pick it up. Nurse asked patient why he was carrying his belongings around, patient stated "I feel better if I have it with me". Patient ate 100% HS snack. Patient was able to retire to bed at a reasonable hour and was able to fall asleep without difficulty. Patient has been up x1 to use the bathroom and was able to return back to bed and fall asleep without difficulty.
[2020-02-27 07:43] VITALS: BP 110/75
--- NOTE | 2020-02-27 16:12 | NUR ---
Up ambulating with regular, steady gait carrying around personal items most of day. Alert and orientated to person. 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 He stated he once had the opportunity to travel to space and said that he traveled in airplanes above the atmosphere. Unable to state date but did know it was Saturday. Denies SI/HI. Breath sounds clear t/o. Reg HR auscultated. Color pink with brisk capillary refill and palpable peripheral pulses. L ankle +2 pitting edema, R ankle +1 edema. Independent with voiding. Active bowel sounds over soft, rounded abdomen.
--- NOTE | 2020-02-27 16:30 | NUR ---
MARIO recieved a call from [employer] villarreal concerning Pt's health insurance. Mr. Villarreal stated that he was going to pay for the Pt's health insurance until Pt could return to work. Mr. Villarreal stated it was [employer] insurance and the Pt needed to sign some paperwork. Mr. Villarreal emailed the paper work to SW. SW talked to the Pt about the issue. Pt ackowledged the information was correct and signed the paperwork sent by Mr. Villarreal. MARIO provided a copy of paperwork to the PT. MARIO will mailed paperwork back to Pt's employer.
--- NOTE | 2020-02-27 16:42 | NUR ---
PT STATED HE IS HAVING INCREASED ANXIETY OF 6 ON 1-10 SCALE. PT STATED IT IS GOING TO BE A BAD NIGHT. PT WANTED TO ALSO CALL HIS MOTHER, THIS JUNIOR BUSINESS ANALYST STATED I THOUGHT SHE , HE SAID WHY WOULD I WANT TO CALL HER IF SHE IS PASSED. NOTIFED FRANSISCA ARCOS FOR ANXIETY ORDERS. OBTAINED ORDERS VIA VERBAL.
--- NOTE | 2020-02-27 16:53 | NUR ---
ADM BUSBAR 5MG PO AT THIS TIME. FRANSISCA ARCOS STATED HE CAN HAVE 2100 DOSE ALSO.
[2020-02-27 19:40] VITALS: BP 145/93
--- NOTE | 2020-02-27 21:39 | NUR ---
Care assumed of patient at 1915: Patient seated in dayroom at start of shift, watching movie with peers. Patient interacting well with peers. Nurse approached patient to complete nursing assessment. Patient irritable and agitated at start of shift. Patient alert and oriented to person only. Confused and forgetful. Patient stated "you are the one that caused this whole mess a couple days ago". When re-oriented to current month, patient became angry with nurse. Patient stated "you are the one with all those pills that was dancing around scaring everyone". Patient oriented that nurse had provided his medication the last 2 nights which angered him more. When asked if patient had anxiety, depression, pain, SI/HI/AH/VH, he yelled "No!". Patient took HS medication whole after education provided. Was resistive initially. Ate 100% HS snack. Approximately 1 hour after taking HS medication, patient has been pleasant, cooperative and conversational. Patient has not yet retired to bed at this time.
[2020-02-28 07:50] VITALS: BP 114/67
[2020-02-28 10:42] VITALS: BP 114/67
--- NOTE | 2020-02-28 12:08 | NUR ---
1150 RESUMMED CARE FROM OVERNIGHT SHIFT THIS AM, PATIENT IN DAY ROOM TALKING WITH OTHER PATIENTS. PATIENT ATE BREAKFAST TOOK MEDICATION WITHOUT INCIDENCE. PATIENTS ABDOMEN SOFT ROUND BOWEL SOUNDS PRESENT IN ALL 4 QUADRANTS LUNGS CLEAR. PATIENT DENIES AI/HI/AH/VH AT PRESENT, PATIENT THIS AM AFTER BREAKFAST WALKING AROUND WITH BROWN BAG. I ASKED PATIENT WHY HIS BELONGINGS IS PACKED AND WHY IS HE WALKING AROUND WITH THEM. PATIENT STATES HE THOUGHT HE WAS LEAVING TODAY, I TOLD PATIENT HE IS NOT DISCHARGING TODAY. PATIENT ALLOWED ME TO PUT BELONGINGS BACK. PATIENT COOPERATIVE CALM WILL CONTINUE TO MONITOR PATIENT FOR SAFETY AND BEHAVIORS.
[2020-02-28 19:44] VITALS: BP 140/89
--- NOTE | 2020-02-28 20:52 | NUR ---
ASSUMED CARE ON 02/28/20 @ 19:15, ASSESSMENT WNL. CONTINUES TO ASK FOR PHONE TO CALL MOTHER. FRIEND MARY CALLED, SPOKE WITH HER THIS EVENING. REPORTS NO BM TODAY. REPORTS GOOD BM YESTERDAY.
--- NOTE | 2020-02-28 23:20 | NUR ---
NEW ORDER OBTAINED FROM Jackie GONGORA N.PKetan FOR SECOND DOSE OF TRAZADONE AN HOUR LATER IF STILL EXPERIENCING INSOMNIA, AT THE 150 DOSE LEVEL. ALSO PROVIDED TYLENOL 650 FOR FOOT PAIN.
[2020-02-29 01:41] VITALS: BP 140/89
--- NOTE | 2020-02-29 06:07 | NUR ---
INCONTINENT IN BRIEF, URINATED IN PAPER SACK, URINATED IN A CUP. SAYS HIS BATHROOM IS BROKEN, TOILET AND SINK SEEM TO BE WORKING PERFECTLY. SLEPT 7.4 HOURS OVERNIGHT.
[2020-02-29 07:34] VITALS: BP 124/86
--- NOTE | 2020-02-29 10:49 | NUR ---
Up ambulating in unit without s/o distress. Using walker, has steady gait. Alert and orientated to person and states he is in hospital but doesn't know which one. States day is in April. States his goal is to get better. Denies SI/HI. Breath sounds clear t/o. Reg HR auscultated. Color pink with brisk capillary refill and palpable peripheral pulses. Edema increased this AM, +2 in R ankle and +3 in L ankle. Independent with voiding. Active bowel sounds over soft, rounded abdomen. BM yesterday per report. Dr. Cox here assessing pt, orders given.
[2020-02-29 19:10] VITALS: BP 171/96
--- NOTE | 2020-03-01 02:35 | NUR ---
ASSUMED CARE ON 02/29/20 @ 19:15, REPEATEDLY PUSHES PEER'S WHEEL CHAIRS, AMBULATES WITH PATIENTS WHO ARE A FALL RISK, AND REPEATEDLY DOES SO AGAIN AFTER BEING COUNSELED NOT TO HANDLE PATIENTS OR HANDLE THEIR W/C. REPORTS ANKLE PAIN OF 5/10. TYLENOL 650 PROVIDED WELL TRAZAODNE 150 FOR INSOMNIA @ 21:30. WHEN PROVIDING PO MEDICATION, PATIENT WAS PROVIDED A LOOK AT THE PACKAGE OF MEDICATION AND ALLOWED TO READ IT, THEN GIVEN AN EXPLAINATION OF WHAT EACH MEDICATION DID FOR HIM. A&OX2, ABLE TO SAY THE MONTH, BUT NOT THE DATE, ABLE TO SAY HE IS IN A HOSPITAL, BUT NOT ABLE TO SAY THE NAME OF THE HOSPITAL, OR THE NAME OF HIS DOCTOR. GIVEN THE DOCTOR'S NAME AND REMINDED THAT HE SEES THE DOCTOR DAILY. SLEEPING AT THIS WRITING, IN BED, EYES CLOSED AND RESPIRATIONS EVEN AND UNLABORED. WILL CONTINUE TO MONITOR Q 12 FOR PATIENT SAFETY.
[2020-03-01 02:47] VITALS: BP 171/96
--- NOTE | 2020-03-01 06:10 | NUR ---
SLEPT 7.4 HOURS OVERNIGHT
[2020-03-01 06:24] LABS: HEMATOCRIT 28.5 % (42.0-52.0); HEMOGLOBIN 9.6 gm/dL (14.0-18.0); MCH 33.6 pg (26.0-34.0); MCHC 33.6 g/dL (28.0-37.0); MCV 99.8 fL (80.0-100.0); RBC 2.86 mil/uL (4.50-6.00); RDW 13.7 % (10.5-14.5); WBC 4.3 thou/uL (4.0-11.0)
[2020-03-01 06:40] LABS: ALBUMIN 2.8 g/dL (3.4-5.0); CALCIUM 8.4 mg/dL (8.5-10.1); CREATININE 0.9 mg/dL (0.7-1.3); POTASSIUM 3.7 mmol/L (3.5-5.1)
[2020-03-01 09:58] VITALS: BP 130/72
[2020-03-01 11:45] VITALS: BP 123/73
--- NOTE | 2020-03-01 13:17 | NUR ---
Up ambulating in unit with walker without s/o distress. Alert and orientated to person and place only. States day is in April. Repeatedly stating that he saw his Mother yesterday and today. When informed that Mother reportedly 6 yrs ago he said I was wrong, he saw her this AM. Repeatedly denied Mother's saying they were mistaken, that she had a near experience 6 yrs ago but was now fine. Denies SI/HI. Breath sounds clear. Reg HR, 110s auscultated. Color pale pink with brisk capillary refill and bounding peripheral pulses. Edema unchanged from 2 days ago, +2 in R ankle, +3 L ankle. Independent with voiding. Active bowel sounds over soft, rounded abdomen. States last BM was last night. Laying down on couch, radial pulse palpated at 96. Then sat up and BP done. HR increased to 116. Dr. Kenny enriquez, here assessing pt. ANTONIO hose ordered and applied by [employer] after shower. Currently participating in group. Asked to use phone and when I stated yes, in a minute he attempted to enter nursing station by opening door from inside. Redirected easily.
[2020-03-01 19:45] VITALS: BP 148/92
--- NOTE | 2020-03-02 03:06 | NUR ---
Assumed care of patient at change of shift. He was found to be sleeping in a peer's bed. He was ambulated to his room and used restroom immediately. He was continent of urine. Consistent and heavy flow heard. Pt. retired to his bed and readied for sleep. Assessment completed. Physical assessment is charted in PI and indicates 2+ non-pitting edema to right ankle and 3+ to left. ANTONIO hose on and pt refuses to have them removed. Gait is moderate in speed and steady.
--- NOTE | 2020-03-02 03:40 | NUR ---
Pt is alert and oriented to name and place. Pt. has limited orientation of time. He has the day and month wrong but states correct year. He cannot name POTUS. His insight into situation is impaired. He has delusions and VH. These are indicated by him stating that his mother is alive and he thinks he sees his father when looking at a peer. Notes per Dr. Honeycutt describe her conversation with him regarding discharge and he does not appear to understand that he has limitations when it comes to living alone. Currently he does not have anyone to live with him to help monitor his health.
[2020-03-02 05:27] VITALS: BP 148/92
[2020-03-02 07:45] VITALS: BP 104/65
--- NOTE | 2020-03-02 11:02 | NUR ---
Assumed care 0700. He is delusional believing his mother is still alive even though she is . He was tearful, reluctant to come to breakfast. He was compliant with medications.
--- NOTE | 2020-03-02 12:05 | NUR ---
JOSE spoke with Андрей Lou and he stated that he was working on the [employer]. Jose called and confirmed that he was able to got to [facility]. Jose also contacted [facility] to confirm that the medicaid application was started. 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 The insurance auth may take 2 days. D/C can b expected this weekend or early next week. Jose reported this to Dr Honeycutt and pt's friend Андрей. Referal packet is ready once there are pt/ot notes to done
[2020-03-02 20:08] VITALS: BP 143/66
--- NOTE | 2020-03-03 05:29 | NUR ---
03-02-20 CARE TRANSFERED 1915 PT SITTING IN DAY ROOM. 2000 PT AAOX3, CALM AND COOPERATIVE THROUGHOUT NURSING ASSESSMENT. PT DENIES ANY PAIN AND DENIES SI/SH/HI/AVH AT THIS TIME. OBSERVED PT GAIT WITH WALKER STEADY AND NOTED PT HAS FULL ROM. OF NOTE, PLEASE REFER TO NURSING INTERVENTIONS FOR MORE INFORMATION. ZERO ACUTE DISTRESS NOTED.
[2020-03-03 08:22] VITALS: BP 144/88
--- NOTE | 2020-03-03 10:42 | NUR ---
Lying in bed without s/o distress. Alert and orientated to person, place but not to time or situation. States he is here d/t COVID infection. States he has alot of thoughts he thinks are abnormal. When asked for an example he said he couldn't think of one right now but would let me know when he had one. Conversant at breakfast table, helpful with peers. Denies SI/HI. Breath sounds clear t/o. Reg HR with rate of 94 palpated and auscultated. Color pale pink with brisk capillary refill and palpable peripheral pulses. Edema per ankles much improved, +1 in R ankle, +2 in L ankle. ANTONIO hose in place bilaterally. States pain in L ankle is a 6, 25mg Tramadol given PO. States pain improved to 5 when standing and to a 3 when sitting. States he had a BM either this AM or late last night. Active bowel sounds over soft, rounded abdomen. Independent with voiding. Regular, steady gait, occasionally uses walker d/t ankle pain.
--- NOTE | 2020-03-03 11:18 | NUR ---
RT Progress Note- Flash continues to be present in the milieu. His social boundaries have improved though he continues to require reorientation and reminders that particular patients are not his mother or father (who have passed.) Flash participates in all groups offered to him and displays no adverse behaviors.
--- NOTE | 2020-03-03 13:21 | NUR ---
Jose met with pt so he could sign the consent for [facility] to complete his medicaid application. Jose also sent updates to [facility] so they could run auth on his insurance for rehab there. We are still pending pt/ot notes. Once the medicaid application and therpay notes are compledted, a COVID 19 terst will need to be completed and pt can d/c there. Hopefully all of this will be for a Saturday or weekend d/c.
--- NOTE | 2020-03-03 15:02 | NUR ---
JOSE faxed the pt and ot notes to [facility] [place] and called [facility] to confirm. It is likely this pt is going to d/c there, now pending auth and the COVID test being completed. Jose reported this to Dr Honeycutt.
--- NOTE | 2020-03-03 19:21 | NUR ---
Care of patient assumed at 1915. Patient is dozing on the couch in the day room. Cooperative and pleasant during assessment. Oriented to self only. Believes he is here for COVID testing only. Noted swelling to bilateral ankles, L > R. Rates pain 3/10 currently. Has been ambulating with a walker, though he is noted to walk without issue when not using a walker. Requires redirection when he is giving a female peer a back rub. HS - tachhycardic but regular. BS active x 4. LS CTA. Lab contacted unit to report patient tested negative for COVID-19. Patient compliant with HS meds.
[2020-03-03 19:43] VITALS: BP 145/67
[2020-03-04 07:55] VITALS: BP 139/77
--- NOTE | 2020-03-04 09:53 | NUR ---
PATIENT HAS BEEN UP, AND OUT ON THE UNIT, AMBULATES WITH ASSIST OF ROLLER WALKER, WHEN HE REMEMBERS TO USE IT. PATIENT TOOK HIS MEDICATIONS WHOLE WITHOUT DIFFICULTY. HE IS EATING MEALS, AND DRINKING FLUID WELL. PATIENT DENIES SUICIDAL/HOMICIDAL IDEATION. WHEN ASKED ABOUT DEPRESSION HE STATES " AM JOSE". PATIENT RATED ANXIETY 7/10 "AM ANXIOUS BECAUSE I WANT TO SEE MY PARENTS, AND MAKE SURE THEY ARE JOSE IN [place]". PATIENT DENIES HAVING PHYSICAL PAIN. PATIENT IS CALM, COOPERATIVE WITH CARE. AFFECT IS CALM, MOOD IS BLUNTED. NO AGITATION OR AGGRESSIVE BEHAVIOR NOTED. NO SIGN OF ACUTE DISTRESS NOTED AT THIS TIME, WILL MONITOR FOR SAFETY.
--- NOTE | 2020-03-04 10:59 | NUR ---
Nutrition followup: pt continues on [facility] unit with major neurocognitive disorder. Continues to eat very well, 100% of meals and snacks. UBW reported as 160-165# by pt. Current 167#. UP 7# from prior eval ([facility] wt). On , thiamine, folic acid supplementation. B12 deficiency documented in provider notes. Current B12 level WNL and not on supplement. REC monitor. D/C planned soon. Low nutrition risk.
[2020-03-04] MEDS ORDERED: TRAMADOL 50 MG50 MG PO (11:36)
[2020-03-04] MEDS ORDERED: FOLIC ACID1 MG PO (11:36)
[2020-03-04] MEDS ORDERED: EXTRA STRENGTH85 GM TOP (11:36)
[2020-03-04] MEDS ORDERED: RISPERDAL2 MG PO (11:36)
[2020-03-04] MEDS ORDERED: CLOTRIMAZOLE-BE15 GM TOP (11:36)
[2020-03-04] MEDS ORDERED: PRENATAL PO (11:36)
[2020-03-04] MEDS ORDERED: TRAZODONE HCL100 MG PO (11:36)
[2020-03-04] MEDS ORDERED: POTASSIUM20 PO (11:36)
[2020-03-04] MEDS ORDERED: COLACE 100 MG100 MG PO (11:36)
[2020-03-04] MEDS ORDERED: VITAMIN B-1100 M2 PO (11:36)
[2020-03-04] MEDS ORDERED: PEPCID20 MG PO (11:36)
[2020-03-04] MEDS ORDERED: BUSPIRONE HCL5 MG PO (11:36)
[2020-03-04] MEDS ORDERED: MAGNESIUM400 MG PO (11:36)
--- NOTE | 2020-03-04 12:52 | NUR ---
JOSE recieved a cll form [facility] and transportaion was set up for 2 pm. Jose reported thsi to nursing. Made a packet and left it on the chart. JOSE also faxed the medicaid application and d/c summary and orders to [facility].
== END 2020-03-04 14:00 | DRG 885 ==
LOC: SBH
PROVIDERS: Hospitalist; Internal Medicine; ADMIT Psychiatry & Neurology Psychiatry
DX: F31.9 Bipolar disorder, unspecified (principal); F01.50 Vascular dementia, unspecified severity, without behavioral disturbance, psychotic disturbance, mood disturbance, and anxiety; N17.9 Acute kidney failure, unspecified; K50.90 Crohn's disease, unspecified, without complications; G93.40 Encephalopathy, unspecified; F10.239 Alcohol dependence with withdrawal, unspecified; I10 Essential (primary) hypertension; D64.9 Anemia, unspecified; E53.8 Deficiency of other specified B group vitamins; F41.9 Anxiety disorder, unspecified; L30.9 Dermatitis, unspecified; F29 Unspecified psychosis not due to a substance or known physiological condition; K21.0 Gastro-esophageal reflux disease with esophagitis; Y90.9 Presence of alcohol in blood, level not specified; Z60.2 Problems related to living alone; Z88.0 Allergy status to penicillin; Z79.899 Other long term (current) drug therapy; Z90.49 Acquired absence of other specified parts of digestive tract; Z03.818 Encounter for observation for suspected exposure to other biological agents ruled out
CPT/HCPCS: 10880

== ENCOUNTER 2020-03-21 11:15 | Emergency (ER) | payer BC, OTHER ==
[~2020-03-21] VITALS: Ht 175.3 cm; Wt 74.8 kg
[~2020-03-21 11:15] MED LIST changes: +BUSPIRONE HCL5 MG PO; +CLOTRIMAZOLE-BE15 GM TOP; +COLACE 100 MG100 MG PO; +EXTRA STRENGTH85 GM TOP; +FOLIC ACID1 MG PO; +MAGNESIUM400 MG PO; +PEPCID20 MG PO; +POTASSIUM20 PO; +RISPERDAL2 MG PO; +TRAMADOL 50 MG50 MG PO; +TRAZODONE HCL100 MG PO
[2020-03-21 11:47] LABS: ABSOLUTE NEUTROPHILS 5.6 thou/uL (1.4-8.2); BASOPHILS 0.8 % (0.0-2.0); EOSINOPHILS 0.2 % (0.0-3.0); HEMATOCRIT 34.3 % (42.0-52.0); HEMOGLOBIN 11.6 gm/dL (14.0-18.0); LYMPHOCYTES 13.5 % (24.0-44.0); MCH 32.5 pg (26.0-34.0); MCV 95.7 fL (80.0-100.0); MONOCYTES 5.9 % (1.0-8.0); PLATELET COUNT 307 thou/uL (150-400); POLYS 79.6 % (36.0-66.0); RBC 3.58 mil/uL (4.50-6.00); RDW 14.2 % (10.5-14.5)
[2020-03-21 11:57] LABS: URINE BILIRUBIN NEGATIVE (Negative); URINE BLOOD NEGATIVE (Negative); URINE CLARITY CLEAR; URINE COLOR YELLOW; URINE GLUCOSE-RANDOM* NEGATIVE (Negative); URINE KETONES NEGATIVE (Negative); URINE LEUKOCYTES-REFLEX NEGATIVE (Negative); URINE NITRITE-REFLEX NEGATIVE (Negative); URINE PROTEIN (DIPSTICK) NEGATIVE (Negative); URINE SPECIFIC GRAVITY >= 1.030 (1.005-1.035); URINE UROBILINOGEN 0.2 E.U./dl (0.2-1.0)
[2020-03-21 11:58] LABS: ANION GAP 11 mmol/L (7-16); BUN 17 mg/dL (7-18); CALCIUM 8.9 mg/dL (8.5-10.1); CHLORIDE 102 mmol/L (98-107); CO2 25 mmol/L (21-32); GLUCOSE 93 mg/dL (74-106); SODIUM 138 mmol/L (136-145)
[2020-03-21 12:06] LABS: ALBUMIN 3.4 g/dL (3.4-5.0); SGOT 20 U/L (15-37); SGPT 23 U/L (30-65); TOTAL BILIRUBIN 0.7 mg/dL (0.2-1.0); TOTAL PROTEIN 7.5 g/dL (6.4-8.2); TROPONIN-I <0.06 ng/mL (<0.06)
[2020-03-21 12:09] LABS: AMP/METHAMP Negative (Negative); BARBITURATES Negative (Negative); BENZODIAZEPINES Negative (Negative); COCAINE Negative (Negative); METHADONE Negative (Negative); OPIATES Negative (Negative); PCP Negative (Negative)
[2020-03-21 13:40] VITALS: BP 136/73
--- NOTE | 2020-03-22 08:41 | EKG ---
[facility] [place] [address] ELECTROCARDIOGRAM REPORT Name: RON MOSS Room #: DEP M.R.#: [id number] Admission: 03/21/20 Attend Phys: Discharge: 03/21/20 Date of : 61 Report #: [id number] THIS REPORT FOR: cc: FAM - No family physician/PCP FAM - No family physician/PCP Kyrie Rosa MD [facility] THIS REPORT FOR: //name// [facility] ED Test Date: 2020-03-21 Test Time: 11:27:19 Pat Name: RON MOSS Department: Room: Gender: [employer]: : [id number] Requested By: Tony Garces Order Number: [id number] MD: Kyrie Rosa Measurements Intervals [place] Rate: 96 P: 30 VT: 152 QRS: -30 QRSD: 79 T: 26 QT: 344 QTc: 435 Interpretive Statements Sinus rhythm Inferior infarct, old Poor R wave progression Compared to ECG 02/25/2020 11:10:33 No significant change was found Electronically Signed On 03-22-2020 8:40:06 CDT by Kyrie Rosa [email or web address] <ELECTRONICALLY SIGNED> By: Kyrie Rosa MD, FAC 03/22/20 0840 [id number] Kyrie Rosa MD, [facility] /EPI
== END 2020-03-21 15:40 | disposition home or self-care (01) ==
LOC: ER 11:15
PROVIDERS: Emergency Medicine
DX: E86.0 Dehydration (principal); Z20.828 Contact with and (suspected) exposure to other viral communicable diseases; F41.1 Generalized anxiety disorder; F31.9 Bipolar disorder, unspecified; I10 Essential (primary) hypertension; Z90.49 Acquired absence of other specified parts of digestive tract; Z79.899 Other long term (current) drug therapy; Z88.0 Allergy status to penicillin